=== PATIENT | female | born 1940 | race Caucasian/White ===

== ENCOUNTER 2018-07-04 17:52 | Emergency (ER) | payer MEDICARE, OTHER ==
[~2018-07-04] VITALS: Ht 175.2 cm; Wt 79.4 kg
[2018-07-04] MEDS ORDERED: CEPHALEXIN500 M1 PO (18:47)
== END 2018-07-04 20:16 | disposition home or self-care (01) ==
LOC: ED 17:52
DX: S81.811A Laceration without foreign body, right lower leg, initial encounter (principal); W22.8XXA Striking against or struck by other objects, initial encounter; Y93.01 Activity, walking, marching and hiking; Y92.89 Other specified places as the place of occurrence of the external cause; Y99.8 Other external cause status